=== PATIENT | female | born 1960 | race Caucasian/White ===

== ENCOUNTER → 2017-11-02 13:46 | Outpatient (CLI) | payer OTHER, SELFPAY ==
--- NOTE | 2017-11-02 | DI.RAD.S_ITS ---
PROCEDURE: XR CERVICAL SPINE 2V OR 3V INDICATIONS: CERVICAL RADICULOPATHY AT C7 TECHNIQUE: 3 views of the cervical spine were acquired. COMPARISON: None. FINDINGS: Bones: No fractures or dislocations to the T1 evel. The lateral masses of C1 appear intact on the odontoid view. No suspicious bony lesions. Degenerative endplate changes and decreased intervertebral disc spaces are noted at C4-5, C5-6 and C6-7 levels. Minimal anterolisthesis of C4 on C5 is also seen. Soft tissues: No prevertebral soft tissue swelling. IMPRESSION: Degenerative disc disease in mid to lower cervical spine. No compression fracture or traumatic spondylolisthesis. Dictated by: Jayce Yang M.D. on 11/02/2017 at 14:53 Approved by: Jayce Yang M.D. on 11/02/2017 at 14:57
== END ==
PROVIDERS: Family Provider Family Medicine; PCP Family Medicine; Visit Provider Family Medicine
DX: M50.121 Cervical disc disorder at C4-C5 level with radiculopathy (principal)
CPT/HCPCS: 72040